=== PATIENT | male | born 1955 | race African-American/Black ===

== ENCOUNTER 2021-04-22 13:07 | Emergency (ER) | payer BC ==
[~2021-04-22] VITALS: Ht 182.9 cm; Wt 87.7 kg
[2021-04-22 15:55] VITALS: BP 165/97; PULSE 81; TEMP 97.9
== END 2021-04-22 15:56 | disposition home or self-care (01) ==
LOC: COL.ER 13:07
DX: S09.90XA Unspecified injury of head, initial encounter (principal); I10 Essential (primary) hypertension; E11.9 Type 2 diabetes mellitus without complications; W22.8XXA Striking against or struck by other objects, initial encounter; Y93.I9 Activity, other involving external motion